=== PATIENT | female | born 1955 | race Caucasian/White ===

== ENCOUNTER 2016-12-03 18:21 | Outpatient (CLI) | payer OTHER | END 2016-12-03 18:22 | disposition EMS.NT | LOC: EMS 18:21 | PROVIDERS: ATTEND Surgery | DX: R07.89 Other chest pain (principal); V43.51XA Car driver injured in collision with sport utility vehicle in traffic accident, initial encounter; Y92.414 Local residential or business street as the place of occurrence of the external cause ==

== ENCOUNTER 2016-12-03 20:06 | Emergency (ER) | payer OTHER, MEDICARE ==
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
[2016-12-03] MEDS ORDERED: IBUPROFEN 100 MG/5 ML UDC PO STA (21:01)
[2016-12-03] MEDS ORDERED: IBUPROFEN 100 MG/5 ML UDC ONE (21:10)
--- NOTE | 2016-12-03 21:41 | XRAY Preliminary Report ---
Exam: XR Knee 3 View RT IMPRESSION: Mild soft tissue swelling. [facility] SITE ID: [id number]
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
[2016-12-03 22:25] VITALS: BP 134/90
== END 2016-12-03 22:23 | disposition home or self-care (01) ==
LOC: ED 20:06
DX: S83.91XA Sprain of unspecified site of right knee, initial encounter (principal); V43.52XA Car driver injured in collision with other type car in traffic accident, initial encounter
CPT/HCPCS: 73562; 99282; 99283; A9270

== ENCOUNTER 2016-12-07 19:10 | Emergency (ER) | payer OTHER ==
[2016-12-07 19:32] VITALS: BP 124/81
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
[2016-12-07] MEDS ORDERED: HYDROcodone/ACETAM 7.5 MG/325 MG 15 ML UDC PO STA (20:32)
[2016-12-07] MEDS ORDERED: ALBUTEROL NEB 2.5 MG/3 ML INH STA (20:33)
[2016-12-07] MEDS ORDERED: ALBUTEROL NEB 2.5 MG/3 ML INH ONE (20:45)
[2016-12-07] MEDS ORDERED: HYDROcodone/ACETAM 7.5 MG/325 MG 15 ML UDC PO ONE (21:04)
--- NOTE | 2016-12-07 21:51 | XRAY Preliminary Report ---
Exam: XR Ribs w/PA Chest RT IMPRESSION: 1. No acute bony abnormality. 2. 5 x 3 cm density right medial lung base. Although this may just represent an atypically disproport ionately enlarged right cardiophrenic angle fat pad, other mass lesions, pulmonary contusion, less li rizwana abscess also included in the differential. Therefore, unless this lady has previous outside film s documenting the long-term stability of this finding, chest CT recommended. [facility] SITE ID: [id number]
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
== END 2016-12-07 22:28 | disposition home or self-care (01) ==
LOC: ED 19:10
DX: S29.011A Strain of muscle and tendon of front wall of thorax, initial encounter (principal); V89.2XXA Person injured in unspecified motor-vehicle accident, traffic, initial encounter; F17.200 Nicotine dependence, unspecified, uncomplicated
CPT/HCPCS: 71101; 94664; 99283; J7613

== ENCOUNTER 2023-05-29 18:42 | Outpatient (CLI) | payer MEDICARE | END 2023-05-29 23:59 | disposition left against medical advice (07) | LOC: EMS 18:42 | DX: R13.10 Dysphagia, unspecified (principal); R09.89 Other specified symptoms and signs involving the circulatory and respiratory systems ==

== ENCOUNTER 2023-10-21 10:45 | Outpatient (CLI) | payer MEDICARE ==
--- NOTE | 2023-10-21 12:35 | XRAY Report ---
PROCEDURE: Finger(s) LT INDICATIONS: LOCALIZED SWELLING OF LEFT THUMB TECHNIQUE: AP hand, 2 views of the first finger(s) acquired. COMPARISON: None. FINDINGS: Bones: There is diffuse osteopenia. Osteoarthritic changes are noted throughout left hand and wrist joints more notably at first CMC joint. No acute fracture or dislocation. No suspicious bony lesions. Soft tissues: Soft tissue swelling over volar aspect of left thumb at the level of first distal phal anx is seen. No suspicious soft tissue calcifications or masses. IMPRESSION: Lower left thumb soft tissue swelling at the level of first distal phalanx. No abnormal soft tissue c alcifications. No left thumb fracture or dislocation. Left thumb osteoarthritis as above. Reviewed by: Osorio Norman MD on 10/21/2023 12:34 PM PDT Approved by: Osorio Norman MD on 10/21/2023 12:34 PM PDT Station ID: [id number]
== END 2023-10-21 11:00 | disposition home or self-care (01) ==
LOC: DI.N 10:45
PROVIDERS: ATTEND Physician Assistant Medical
DX: M18.12 Unilateral primary osteoarthritis of first carpometacarpal joint, left hand (principal); R22.32 Localized swelling, mass and lump, left upper limb

== ENCOUNTER 2023-12-16 16:50 | Outpatient (CLI) | payer MEDICARE ==
[2023-12-16 17:11] LABS: BASOPHILS # (AUTO) 0.1 10^3/uL (0.0-0.1); BASOPHILS % (AUTO) 1.1 %; EOSINOPHILS # (AUTO) 0.2 10^3/uL (0.0-0.7); EOSINOPHILS % (AUTO) 2.6 %; HCT - HEMATOCRIT 45.8 % (37.0-47.0); HGB - HEMOGLOBIN 15.2 g/dL (12.0-16.0); LYMPHOCYTES % (AUTO) 22.1 %; MEAN CORPUSCULAR HEMOGLOBIN 31.6 pg (27.0-31.0); MEAN CORPUSCULAR HGB CONC 33.2 g/dL (32.0-36.0); MEAN CORPUSCULAR VOLUME 95.2 fL (81.0-99.0); MEAN PLATELET VOLUME 9.1 fL (7.9-10.8); MONOCYTES # (AUTO) 0.7 10^3/uL (0.0-1.0); MONOCYTES % (AUTO) 7.5 %; NEUTROPHILS # (AUTO) 6.1 10^3/uL (1.5-6.6); NEUTROPHILS % (AUTO) 66.5 %; PLT - PLATELET COUNT 310 10^3/uL (130-450); RED BLOOD COUNT 4.81 10^6/uL (4.20-5.40); RED CELL DISTRIBUTION WIDTH 13.9 % (12.0-15.0); WHITE BLOOD COUNT 9.2 x10^3/uL (4.8-10.8)
[2023-12-16 17:21] LABS: ALBUMIN 4.5 g/dL (3.2-5.5); ALBUMIN/GLOBULIN RATIO 1.3 (1.0-2.2); BILIRUBIN,TOTAL 0.7 mg/dL (0.2-1.0); CALCIUM 10.3 mg/dL (8.5-10.3); CREATININE 0.7 mg/dL (0.6-1.3); POTASSIUM 3.9 mmol/L (3.5-4.5); TOTAL PROTEIN 8.1 g/dL (6.4-8.9)
[2023-12-18 21:07] LABS: KAPPA FREE LT CHAINS SERUM 36.7 mg/L (3.3-19.4); KAPPA/LAMBDA RATIO SERUM 1.08 (0.26-1.65); LAMBDA FREE LT CHAINS SERUM 34.1 mg/L (5.7-26.3)
[2023-12-19 14:09] LABS: A/G RATIO 1.2 (0.7-1.7); ALBUMIN 4.1 g/dL (2.9-4.4); ALPHA-1-GLOBULIN 0.3 g/dL (0.0-0.4); ALPHA-2-GLOBULIN 0.9 g/dL (0.4-1.0); BETA GLOBULIN 1.1 g/dL (0.7-1.3); GAMMA GLOBULIN 1.5 g/dL (0.4-1.8); GLOBULIN TOTAL 3.7 g/dL (2.2-3.9); IMMUNOGLOBULIN A (IGA) 368 mg/dL (87-352); IMMUNOGLOBULIN G (IGG) 1360 mg/dL (586-1602); IMMUNOGLOBULIN M (IGM) 148 mg/dL (26-217); M-SPIKE 0.3 g/dL (Not Observed); PROTEIN TOTAL 7.8 g/dL (6.0-8.5)
== END 2023-12-16 16:51 | disposition home or self-care (01) ==
LOC: LAB 16:50
PROVIDERS: ATTEND Internal Medicine Hematology & Oncology
DX: D47.2 Monoclonal gammopathy (principal)
CPT/HCPCS: 36415; 80053; 82607; 82728; 82784; 83521; 83540; 84155; 84165; 84466; 85025; 86334